=== PATIENT | female | born 2000 | race Caucasian/White ===

== ENCOUNTER → 2025-03-17 | Outpatient (CLI) | payer BC ==
[2025-03-17 11:18] LABS: BASOPHILS % 0.8 % (0.0-2.0); EOSINOPHILS % 1.3 % (0.0-5.0); HEMATOCRIT. 39.8 % (36.0-48.0); HEMOGLOBIN. 13.6 g/dL (12.0-16.0); LYMPHOCYTES % 29.6 % (20.0-50.0); MEAN PLATELET VOLUME 7.9 fl (7.4-10.4); MONOCYTES % 6.6 % (2.0-8.0); NEUTROPHILS % 61.7 % (40.0-76.0); PLATELET 247 x1000/uL (130-400); RED BLOOD CELL COUNT 4.39 mill/uL (4.2-5.4); RED CELL DISTRIBUTION WIDTH 12.8 % (11.6-14.6)
[2025-03-17 11:34] LABS: CREATININE 0.9 mg/dL (0.6-1.0); TRIGLYCERIDE 45 mg/dL (0-150); UREA NITROGEN BLOOD 7 mg/dL (9-23)
[2025-03-17 11:35] LABS: LDL CHOLESTEROL 93 mg/dL (5-100)
[2025-03-17 11:36] LABS: ASPARTATE AMINOTRANSFERASE 15 IU/L (<34); BILIRUBIN TOTAL 0.8 mg/dL (0.1-1.0); PROTEIN TOTAL 7.9 g/dL (6.0-8.3)
[2025-03-17 11:38] LABS: T4 FREE 1.28 ng/dL (0.89-1.76)
[2025-03-17 14:28] LABS: VITAMIN B12 SERUM 358 pg/mL (211-911)
[2025-03-18 09:07] LABS: ESTRADIOL 104.0 pg/mL (.); FOLICLE STIMULATING HORMONE 2.8 mIU/mL (.); THYROID PEROXIDASE ANTIBODY 16 IU/mL (0-34); VITAMIN D 25-OH 37.2 ng/mL (30.0-100.0)
== END | disposition home or self-care (01) ==
LOC: LAB 10:17
PROVIDERS: ATTEND Family Medicine
DX: R53.83 Other fatigue (principal); Z00.01 Encounter for general adult medical examination with abnormal findings; Z11.3 Encounter for screening for infections with a predominantly sexual mode of transmission
CPT/HCPCS: 36415; 80053; 80061; 82306; 82607; 82670; 82728; 83001; 83036; 84402; 84403; 84439; 84443; 84481; 85025; 86376; 86592; 87491; 87591